=== PATIENT | female | born 1965 | race Caucasian/White ===

== ENCOUNTER 2025-05-01 07:16 | Day surgery (SDC) | payer OTHER, SELFPAY ==
[2025-05-01] VITALS (25 sets, daily range): BP systolic 80–142; BP diastolic 49–82; PULSE 50–84; RESP 12–16; TEMP 36.4–36.7; O2SAT 95–99; BMI 29.2
[2025-05-01] MEDS: LACTATED RINGERS 1000 ML 1,000 ML 100 ML IV ×3 (07:25→15:00)
[2025-05-01] MEDS: ACETAMINOPHEN 500 MG TABLET 1000 MG PO (07:30)
[2025-05-01] MEDS: CELECOXIB 200 MG CAPSULE PO (07:30)
[2025-05-01] MEDS: OXYCODONE (CR) 10 MG TAB.ER.12H PO (07:30)
[2025-05-01] MEDS: SODIUM CHLORIDE 0.9 % (FLUSH) 10 ML SYRINGE IVF (07:50)
[2025-05-01] MEDS: MIDAZOLAM HCL 1 MG/ML inj IVP (08:45)
--- NOTE | 2025-05-01 08:52 | SUR.PREOP ---
TIME?OUT:?6040 PT/olena simpson RN/diallo abdullahi MDA?VERIFICATION?OF?SURGICAL?SITE,?PROCEDURE,?AND?CONSENT OBTAINED?PRIOR?TO?INVASIVE?PROCEDURE.
[2025-05-01] MEDS: TRANEXAMIC ACID 100 MG/ML INJ 1000 MG IV (09:37)
--- NOTE | 2025-05-01 10:47 | CRLHL7_ITS ---
For Patients: As a result of the Cures Act, medical imaging exams and procedure reports are released immediately into your electronic medical record. You may view this report before your referring provider. If you have questions, please contact your health care provider. Indication: Postop TKA Technique: Two views left knee Findings/Impression: Hardware from a left total knee arthroplasty is in satisfactory position. Bone alignment is normal. No sign of acute fracture. Postop changes are within normal limits. Dictated by Young Lieberman MD @ 05/01/2025 12:18:04 PM (Electronically Signed)
--- NOTE | 2025-05-01 10:48 | PM.ORPRC ---
Procedure Note Date of procedure: 05/01/25 Procedure: PREOPERATIVE DIAGNOSIS: Left knee osteoarthritis POSTOPERATIVE DIAGNOSIS: Left knee osteoarthritis NAME OF OPERATION: Left total knee arthroplasty SURGEON: Shailesh Del Rio MD LOCATE TECHNICIAN: Stephani Arteaga PA-C ANESTHESIA: Spinal ESTIMATED BLOOD LOSS: 0 mL COMPLICATIONS: None SPECIMENS: None DRAINS: None PREOPERATIVE ANTIBIOTICS: Ancef 2g, antibiotic impregnated cement IMPLANTS: 1. J&J Attune #6 posterior stabilized femur 2. # 5 fixed-bearing tibia 3. #6 posterior stabilized, 14 mm fixed-bearing polyethylene 4. 38 patella INDICATIONS: The patient is a 60-year-old with a longstanding history of severe, unrelenting left knee pain secondary to end-stage (grade IV) left knee osteoarthritis. Despite appropriate nonoperative management, including activity modification, anti-inflammatories, [id number]-esfdici pain medication, bracing, physical therapy, and injections they continue to have pain and disability. Operative intervention was offered. The risks, benefits and expected outcomes were discussed in detail. These included but were not limited to: Infection, bleeding, injury to blood vessel or nerve, venous thromboembolism. All questions were answered to their satisfaction. Use of an hospital clinic assistant was necessary throughout the case for patient positioning and safety, soft tissue retraction, and closure. PROCEDURE: Spinal anesthesia was administered. The patient was placed supine on the operating table. The hospital clinic assistant made sure the patient was positioned appropriately. The lower extremity was prepped and draped in the usual sterile fashion. The limb was exsanguinated with the John bandage. The pneumatic tourniquet was inflated to 225mmHg. A standard anterior incision was made with the knee in flexion. Subcutaneous dissection was sharply taken through fascial layer #1. Full-thickness medial and lateral flaps were elevated. The hospital clinic assistant retracted the soft tissues and protected them throughout the case. A standard subvastus approach was made. The patella was subluxed. The infrapatellar fat pad was preserved. The menisci and cruciate ligaments were sharply d?brided. Marginal osteophytes were d?brided with the rongeur. The drill was used to penetrate the femoral canal. The intramedullary femoral guide was placed for a 5-degree valgus cut, removing 10 mm off the distal femur. The saw was used to make the cut. Whitesides line and the trans epicondylar axis were marked. The femoral sizing guide was pinned onto the distal femur. Three degrees of external rotation nicely parallels the transepicondylar axis. Pins were placed for posterior referencing. The four-in-one cutting guide was pinned onto the distal femur. The anterior, posterior, and chamfer cuts were made. The hospital clinic assistant protected the collateral ligaments. The box cutting guide was pinned. The box cuts were made. The boxed trial was placed and was an excellent fit. Drill holes for the lugs were made. Attention was then turned to the proximal tibia. The extramedullary tibial guide was placed for a neutral varus/valgus cut with 5 degrees of posterior slope, removing 2 mm based off the medial tibial surface. There was a marked amount of posteromedial bone loss. This necessitated a thick tibial cut. The hospital clinic assistant protected the collateral ligaments and the neurovascular bundle. The saw was used to make the cut. Trial components were placed. The knee was nicely balanced in both flexion and extension. The trial components were removed. The tray was placed in appropriate rotation, parallel to our tibial cutting pins. It was pinned by the hospital clinic assistant and the drill and the punch were used. The tray was removed. The punch was used again. We placed a bone plug in the femoral canal. Attention was then turned to the patella. [place] patellar thickness was 23 mm. The lobster claw resection guide was used with the 9.5 mm lorraine. The saw was used to make the cut. Drill holes were made by the hospital clinic assistant. The trial was placed and was an excellent fit. Cancellous surfaces were irrigated with pulse lavage and thoroughly dried by the hospital clinic assistant. We cemented the tibial component, then the femoral component. We impacted the 14 mm polyethylene onto the tibial tray. The knee was brought into full extension. We then cemented the patellar component. Excessive cement was removed. The cement was allowed to harden. The knee was taken through a range of motion and was found to be nicely balanced in both flexion and extension. The patella tracks centrally. The hospital clinic assistant did a three minute dilute Betadine solution soak. The hospital clinic assistant irrigated the wound with 3 liters of normal saline via pulse lavage. The hospital clinic assistant reapproximated the extensor mechanism with #1 Vicryl in an interrupted [id number] fashion. The hospital clinic assistant then ran the extensor mechanism with a #1 PDO Stratafix. The hospital clinic assistant closed the subcutaneous tissues with a 3-0 Stratafix and the skin with a running 3-0 Stratafix in a subcuticular fashion. Glue was used to seal the skin. The hospital clinic assistant placed a dry dressing. Sponge and needle counts were correct x2. The patient tolerated the procedure well. There were no apparent complications. They were carefully transferred to the hospital bed and taken to the postanesthesia care unit in satisfactory condition. PLAN: The patient will be mobilized with physical therapy. Aspirin will be used for DVT prophylaxis. They will be discharged to home once medically appropriate.
--- NOTE | 2025-05-01 11:38 | P.ANES_ITS ---
Anesthesia Charges Start Date/Time Anesthesia Start Date: 05/01/25 Anesthesia Start Time: 09:18 Stop Date/Time Anesthesia Stop Date: 05/01/25 Anesthesia Stop Time: 11:38 Coding CPT Codes CPT Codes: ANESTH KNEE ARTHROPLASTY - 07855 ([id number]) P2 - PATIENT W/MILD SYST DISEASE, QK - INORGANIC CHEMISTRY PROFESSOR 2-4 CNCRNT ANES PROC, QX - FACING END TRIMMER SVC W/ MD MED DIRECTION
--- NOTE | 2025-05-01 11:38 | W.ANESCHARGE ---
Anesthesia Charges Start Date/Time Anesthesia Start Date: 05/01/25 Anesthesia Start Time: 09:18 Stop Date/Time Anesthesia Stop Date: 05/01/25 Anesthesia Stop Time: 11:38 Coding CPT Codes CPT Codes: ANESTH KNEE ARTHROPLASTY - 00105 ([id number]) P2 - PATIENT W/MILD SYST DISEASE, QK - MATERIALS AND CORROSION ENGINEER 2-4 CNCRNT ANES PROC, QX - COACH MECHANIC SVC W/ MD MED DIRECTION
--- NOTE | 2025-05-01 11:41 | W.PM.NB ---
Nerve Block Nerve Block Time Seen by Provider: 08:45 Date Seen: 05/01/25 Type of block requested by surgeon for post-operative analgesia: adductor canal Side: left Time out performed: Yes Verification of patient name: Yes Verification of date of : Yes Site marking: site marked Name of person performing procedure: Trevor Continuous monitoring Was continuous monitoring of O2 sat, B/P, corncob pipe manufacturing supervisor, recorded every 15 minutes?: Yes Procedure Checklist: sterile prep, needles and gloves Ultrasound guided. Images saved: Yes Medications given in 5ml increments after negative aspiration: Marcaine %: 0.25 mL: 15 Needle gauge: 20 Precedex (mcg): 25 Patient tolerated procedure well: Yes Block Charges Block Charge (with Pro Fee): Femoral Nerve Use of Ultrasound Machine for Block: Yes- US Guidance/pain block
--- NOTE | 2025-05-01 11:42 | W.PM.NB ---
Nerve Block Nerve Block Time Seen by Provider: 08:45 Date Seen: 05/01/25 Type of block requested by surgeon for post-operative analgesia: geniculars Side: left Time out performed: Yes Verification of patient name: Yes Verification of date of : Yes Site marking: site marked Name of person performing procedure: Trevor Continuous monitoring Was continuous monitoring of O2 sat, B/P, case monitor, recorded every 15 minutes?: Yes Procedure Checklist: sterile prep, needles and gloves Ultrasound guided. Images saved: Yes Medications given in 5ml increments after negative aspiration: Marcaine %: 0.25 mL: 9 Needle gauge: 25 Patient tolerated procedure well: Yes Block Charges Block Charge (with Pro Fee): Genicular Nerve Block
--- NOTE | 2025-05-01 11:43 | P.ANES_ITS ---
Anesthesia Charges Start Date/Time Anesthesia Start Date: 05/01/25 Anesthesia Start Time: 09:18 Stop Date/Time Anesthesia Stop Date: 05/01/25 Anesthesia Stop Time: 11:38 Coding CPT Codes CPT Codes: ANESTH KNEE ARTHROPLASTY - 79425 ([id number]) QK - SUPERVISOR ASBESTOS REMOVAL 2-4 CNCRNT ANES PROC, QX - CLOTH DOUBLING MACHINE OPERATOR SVC W/ MD MED DIRECTION, P2 - PATIENT W/MILD SYST DISEASE
--- NOTE | 2025-05-01 11:43 | W.ANESCHARGE ---
Anesthesia Charges Start Date/Time Anesthesia Start Date: 05/01/25 Anesthesia Start Time: 09:18 Stop Date/Time Anesthesia Stop Date: 05/01/25 Anesthesia Stop Time: 11:38 Coding CPT Codes CPT Codes: ANESTH KNEE ARTHROPLASTY - 69296 ([id number]) QK - DIVER ASSISTANT 2-4 CNCRNT ANES PROC, QX - BOILER TUBE REAMER SVC W/ MD MED DIRECTION, P2 - PATIENT W/MILD SYST DISEASE
--- NOTE | 2025-05-01 12:08 | SUR.PHASEI ---
patient met discharge criteria per anesthesia
--- NOTE | 2025-05-01 15:23 | SUR.PHASEII ---
Patient returned from physical therapy pale and lightheaded. Hooked back up to q5 vital monitoring & administered another fluid bolus. Plan to have patient walk after bolus and if BPs improve and then send home if all is well, cleared for DC on all other aspects. Patient and spouse in agreeance with plan.
== END 2025-05-01 15:55 | disposition home or self-care (01) ==
LOC: OR 07:17
PROVIDERS: PCP Family Medicine; Visit Provider Orthopaedic Surgery
PROC: (CPT 27447; principal; 2025-05-01 09:00)
DX: M17.12 Unilateral primary osteoarthritis, left knee (principal); G89.18 Other acute postprocedural pain
CPT/HCPCS: 27447; 01402; 64447; 64454; 73560; 76942; 97110; 97116; 97162; A9270; C1776; J0665; J0690; J2250; J2371; J2405; J2704; J3010; J7120

== ENCOUNTER 2025-05-03 01:18 | Emergency (ER) | payer OTHER, SELFPAY ==
[2025-05-03 01:23] VITALS: BP 123/72; PULSE 107; RESP 18; TEMP 37.1; O2SAT 99; BMI 29.2
[2025-05-03 01:43] LABS: Hematocrit* 34.3 % (33.0-51.0); Hemoglobin* 11.4 gm/dL (12.0-16.0); Immature Granulocytes Abs Auto 0.02 K/uL (0.00-0.30); Immature Granulocytes Pct Auto 0.3 %; Mean Corpuscular HGB Conc 33 gm/dL (32-36); Mean Corpuscular Hemoglobin 31 pg (26-34); Mean Corpuscular Volume 92 fL (80-100); RDW Coefficient of Variation % 12.7 % (11.5-15.5); Red Blood Count* 3.73 m/uL (4.00-5.20); White Blood Count* 7.56 K/uL (4.50-11.00)
[2025-05-03 01:45] LABS: Lymphocytes Absolute Auto 1.10 K/uL (0.90-2.90); Slide Review Reflex No
[2025-05-03 01:56] LABS: Albumin* 3.7 g/dL (3.3-5.0)
--- NOTE | 2025-05-03 01:56 | ED.GENADULT ---
HPI - General Adult General Chief complaint: Overdose Stated complaint: accidental tylenol overdose Time Seen by Provider: 05/03/25 01:30 Source: patient and family Mode of arrival: ambulatory Limitations: no limitations History of Present Illness HPI narrative: 60-year-old female presents the emergency department for evaluation of accidental Tylenol overdose. She underwent an uncomplicated left total knee arthroplasty a day and a half ago. She has been doing well after discharge. Her has been managing her medications and dispensing her Tylenol for pain control. He misread the bottle, thinking that the quantity of 100 was the number of mg of the tablets. Therefore he has been giving her a much higher dose then would be recommended, 5-7 times the appropriate dose x2 doses. He does feel guilty about this, no evidence that this was intentional. She has been doing her PT well, moving well. Pain has been reasonably well controlled. A little stiffer today than yesterday, not unexpected. No fever. Is taking her medications otherwise as prescribed with the exception of the Tylenol. She does drink alcohol on a regular basis but does not have any underlying history of liver dysfunction in the past. Past medical history notable for hypertension. Meds reviewed, accurate as listed per patient. ROS is notable for the recent knee surgery and some knee pain, but in the realm of expected postoperatively. Otherwise denies times 12 systems. Related Data Home Medications ?Medication ?Instructions ?Recorded ?Confirmed certolizumab pegol 400 mg/2 mL 400 mg subcut Q4W Rheumatoid 11/27/24 04/30/25 (200 mg/mL x2) subcutaneous Arthritis syringe kit (Cimzia) estradiol 0.05 mg/24 hr weekly 1 patch topical DAILY 11/27/24 05/01/25 transdermal patch fluticasone propionate 50 1 spray intranasal DAILY 11/27/24 05/01/25 mcg/actuation nasal spray,suspension lisinopril 10 mg tablet 10 mg PO DAILY 11/27/24 05/01/25 rosuvastatin 20 mg tablet 20 mg PO DAILY 11/27/24 05/01/25 aspirin 81 mg tablet 81 mg PO QDAY 04/16/25 05/01/25 Held on 05/01/25. Instructions: Resume on 06/01/25. gabapentin 100 mg capsule 100 mg PO QHS 04/16/25 05/01/25 Previous Rx's ?Medication ?Instructions ?Recorded acetaminophen 500 mg capsule 500 - 1,000 mg (1 - 2 x 500 mg) PO 05/01/25 Q6H PRN pain #100 caps aspirin 81 mg chewable tablet 81 mg PO BID for DVT prophylaxis 05/01/25 (Aspirin Childrens) 30 days #60 tabs oxycodone 5 mg tablet 2.5 - 5 mg (0.5 - 1 x 5 mg) PO 05/01/25 Q4-6H PRN Pain #42 tabs sennosides 8.6 mg tablet (Senna 17.2 mg (2 x 8.6 mg) PO BID PRN 05/01/25 Lax) constipation #100 tabs Allergies Allergy/AdvReac Type Severity Reaction Status Date / Time No Known Drug Allergies Allergy Verified 05/03/25 01:29 [facility] Medical History Menorrhagia ?N92.0 - Excessive and frequent menstruation with regular cycle (ICD-10) 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) History of female infertility ?Z87.42 - Personal history of other diseases of the female genital tract (ICD-10) Syncope and collapse ?R55 - Syncope and collapse (ICD-10) History of abnormal cervical Papanicolaou smear ?Z87.42 - Personal history of other diseases of the female genital tract (ICD-10) Cubital tunnel syndrome on right ?G56.21 - Lesion of ulnar nerve, right upper limb (ICD-10) Right carpal tunnel syndrome ?G56.01 - Carpal tunnel syndrome, right upper limb (ICD-10) Left carpal tunnel syndrome ?G56.02 - Carpal tunnel syndrome, left upper limb (ICD-10) Rib injury ?S29.9XXA - Unspecified injury of thorax, initial encounter (ICD-10) Rheumatoid arthritis, seropositive ?M05.9 - Rheumatoid arthritis with rheumatoid factor, unspecified (ICD-10) Rhinitis, allergic ?J30.9 - Allergic rhinitis, unspecified (ICD-10) Mixed hyperlipidemia ?E78.2 - Mixed hyperlipidemia (ICD-10) Overweight ?E66.3 - Overweight (ICD-10) Impaired fasting glucose ?R73.01 - Impaired fasting glucose (ICD-10) Photoaged skin ?L57.8 - Other skin changes due to chronic exposure to nonionizing radiation (ICD-10) HTN (hypertension) ?I10 - Essential (primary) hypertension (ICD-10) Surgical History History of arthroplasty of left knee (05/01/25) ?Z96.652 - Presence of left artificial knee joint (ICD-10) History of unilateral fallopian tube excision ?Z90.79 - Acquired absence of other genital organ(s) (ICD-10) History of open reduction and internal fixation (ORIF) procedure ?Z98.890 - Other specified postprocedural states (ICD-10) H/O knee surgery ?Z98.890 - Other specified postprocedural states (ICD-10) H/O tubal ligation ?Z98.51 - Tubal ligation status (ICD-10) H/O dilation and curettage ?Z98.890 - Other specified postprocedural states (ICD-10) S/P hysterectomy ?Z90.710 - Acquired absence of both cervix and uterus (ICD-10) Social History Smoking Status: Never smoker Do you use any of these nicotine containing products: None Second hand tobacco smoke exposure: No How often do you have a drink containing alcohol: 4 or more times a week AUDIT-C Alcohol total score: 4 Non-prescribed substance use: denies use Caffeine: Yes Exam Const: Vital Signs, click to edit/add: Vital Signs - 24 hr 05/03/25 01:23 Temperature 98.7 F Pulse Rate [Pulse Oximeter] 107 H Respiratory Rate 18 Blood Pressure [Ri ght Upper Arm] 123/72 Pulse Oximetry 99 Oxygen Delivery Me thod Room Air Documenting provider has reviewed patient's vital signs: yes Common normals: no apparent distress General appearance: comfortable Other: Alert. Good historian, not distressed. HENMT: Common normals: normocephalic, moist oral mucous membranes and oropharynx normal Head and scalp: normocephalic Eye: Common normals: conjunctivae normal General eye: normal appearance of both eyes Conjunctiva: conjunctiva(e) normal Neck & C-Spine: General: normal visual inspection Resp: Common normals: normal respiratory effort and clear to auscultation bilaterally Effort & inspection: able to speak in complete sentences Auscultation: clear to auscultation bilaterally Cardio: Common normals: regular rate, regular rhythm, S1 normal heart sound, S2 normal heart sound and no murmurs Rate: regular rate Rhythm: regular rhythm Heart sounds: S1 normal and S2 normal GI: Common normals: Normal to inspection, nondistended, normoactive bowel sounds present, soft to palpation, non-tender, no hepatosplenomegaly and no masses Palpation: soft and no hepatosplenomegaly Back & Pelvis: Common normals: thoracic and lumbar spine normal to inspection Extremity: Common normals: normal capillary refill Other: Mild swelling at the left knee, as expected. No seepage onto the surgical dressing. Some mild bruising. She has about 120? of bending currently. Good pedal pulses. Normal range of motion at the ankle. Neuro: Speech: speech normal Psych: Attitude: engaged Activity/motor behavior: appropriate eye contact Insight: insight good Judgement: judgment good Skin: Common normals: no rashes or lesions noted General skin exam: no rashes or lesions noted Course Course ED Course: 60-year-old female with accidental Tylenol overdose. Does not seem to be any evidence of domestic violence. Does seem like an honest mistake. Will order CBC, comprehensive metabolic panel and Tylenol level. Contact poison Control if needed. Reevaluation(s) Time of Reevaluation #1: 02:13 Reevaluation #1: Counseled patient on findings. Lab results are reassuring. Will have her hold Tylenol for 24 hours. Okay to continue use of NSAIDs. Resume Tylenol Wednesday morning at proper doses. Indications reviewed. Alarm symptoms discussed that would warrant ED re-evaluation. Continue PT and other postoperative advice as written. Vital Signs Vital signs: Initial Vital Signs Temperature 98.7 F 05/03/25 01:23 Temperature Source Temporal Artery Scan 05/03/25 01:23 Pulse Rate 107 H 05/03/25 01:23 Pulse Rhythm Regular 05/03/25 01:23 Respiratory Rate 18 05/03/25 01:23 Blood Pressure 123/72 05/03/25 01:23 Blood Pressure Mean 89 05/03/25 01:23 Blood Pressure Position Sitting 05/03/25 01:23 Pulse Oximetry 99 05/03/25 01:23 Oxygen Delivery Method Room Air 05/03/25 01:23 Vital Signs Temperature 98.7 F 05/03/25 01:23 Pulse Rate 107 H 05/03/25 01:23 Respiratory Rate 18 05/03/25 01:23 Blood Pressure 123/72 05/03/25 01:23 Pulse Oximetry 99 05/03/25 01:23 Oxygen Delivery Method Room Air 05/03/25 01:23 Temperature 98.7 F 05/03/25 01:23 Pulse Rate 107 H 05/03/25 01:23 Respiratory Rate 18 05/03/25 01:23 Blood Pressure 123/72 05/03/25 01:23 Pulse Oximetry 99 05/03/25 01:23 Oxygen Delivery Method Room Air 05/03/25 01:23 Medical Decision Making Lab Data Lab results reviewed: Yes I reviewed the patient's lab results Lab results narrative: Hemoglobin looks great. Liver enzymes with very mild elevation of AST and ALT, Tylenol level is negative. I did call lab to confirm this. Labs: Lab Results 05/03/25 Range/Units 01:38 WBC 7.56 (4.50-11.00) K/uL RBC 3.73 L (4.00-5.20) m/uL Hgb 11.4 L (12.0-16.0) gm/dL Hct 34.3 (33.0-51.0) % MCV 92 (80-100) fL MCH 31 (26-34) pg MCHC 33 (32-36) gm/dL RDW Coeff of Laura 12.7 (11.5-15.5) % Plt Count 188 (140-440) K/uL Neut % (Auto) 76.3 H (42.0-72.0) % Lymph % (Auto) 14.8 L (20-44) % Slope % (Auto) 5.2 (0.0-11.0) % Eos % (Auto) 3.0 (0.0-7.0) % Baso % (Auto) 0.4 (0.0-3.0) % Neut # (Auto) 5.80 (1.7-7.0) K/uL Lymph # (Auto) 1.10 (0.90-2.90) K/uL Slope # (Auto) 0.40 (0.00-0.90) K/UL Eos # (Auto) 0.23 (0.00-0.50) K/uL Baso # (Auto) 0.03 (0.00-0.30) K/uL Abs Immat Gran (auto) 0.02 (0.00-0.30) K/uL Imm/Tot Granulo (auto) 0.3 % Total Bilirubin 0.7 (0.1-1.5) mg/dL Direct Bilirubin 0.2 (0.0-0.5) mg/dL AST 49 H (12-35) U/L ALT 40 H (4-35) U/L Alkaline Phosphatase 53 (40-150) U/L Total Protein 6.4 (6.0-8.3) g/dL Albumin 3.7 (3.3-5.0) g/dL Acetaminophen < 10.0 (10.0-30.0) ug/mL Discharge Plan Discharge Clinical Impression: Accidental acetaminophen overdose Patient Disposition: Home w/ Parent or Adult Condition: Stable Instructions: Acetaminophen Overdose (ED) Additional Instructions: Unfortunately, simple medication nares can be quite common. I am glad you realized your mistake and stopped the overuse before things got to toxic levels. Tylenol levels in the blood are is there does not seem to be any evidence of liver inflammation or damage. I would like for you to not use any Tylenol for 24 hours, then you may resume typical safe standard dosing on Wednesday. You may continue using NSAIDs for pain and the oxycodone that was provided. Continue your physical therapy protocols and all other postoperative instructions. Activity Level: Activity as Tolerated Discharge Diet: Regular Prescriptions: No Action lisinopril 10 mg tablet 10 mg PO DAILY estradiol 0.05 mg/24 hr patch weekly 1 patch topical DAILY rosuvastatin 20 mg tablet 20 mg PO DAILY fluticasone propionate 50 mcg/actuation spray,suspension 1 spray intranasal DAILY Cimzia 400 mg/2 mL (200 mg/mL x 2) syringe kit 400 mg subcut Q4W Rx Instructions: administer as 2 equally divided doses at 2 different sites in abdomen or thigh aspirin 81 mg tablet 81 mg PO QDAY gabapentin 100 mg capsule 100 mg PO QHS sennosides [Senna Lax] 8.6 mg Tablet 17.2 mg PO BID PRN (Reason: constipation) Qty: 100 0RF aspirin [Aspirin Childrens] 81 mg tablet,chewable 81 mg PO BID 30 Days Qty: 60 0RF acetaminophen 500 mg capsule 500 - 1,000 mg PO Q6H MDD 4000mg per day PRN (Reason: pain) Qty: 100 0RF oxycodone 5 mg Tablet 2.5 - 5 mg PO Q4-6H MDD 6 tabs per day PRN (Reason: Pain) Qty: 42 0RF Rx Instructions: Minimize. Discontinue as soon as possible Follow Up/Referrals: Juliet Marie MD [Primary Care Provider, Family Practice] Stand Alone Forms: MyHealth Info Instructions
[2025-05-03 01:59] LABS: Alanine Aminotransferase* 40 U/L (4-35); Alkaline Phosphatase* 53 U/L (40-150); Aspartate Amino Transferase* 49 U/L (12-35); Bilirubin Direct* 0.2 mg/dL (0.0-0.5); Bilirubin Total* 0.7 mg/dL (0.1-1.5); Total Protein* 6.4 g/dL (6.0-8.3)
[2025-05-03 02:02] LABS: Acetaminophen* < 10.0 ug/mL (10.0-30.0)
[2025-05-03 02:18] VITALS: BP 121/70; PULSE 95; RESP 18; TEMP 37.1; O2SAT 99
[2025-05-03 02:19] VITALS: BP 121/70; PULSE 95; RESP 18; TEMP 37.1
== END 2025-05-03 02:19 | disposition home or self-care (01) ==
PROVIDERS: Emergency Provider Family Medicine; PCP Family Medicine
DX: T39.1X1A Poisoning by 4-Aminophenol derivatives, accidental (unintentional), initial encounter (principal)
CPT/HCPCS: 36415; 80076; 80143; 85025; 99283